=== PATIENT | male | born 1990 | race Caucasian/White ===

== ENCOUNTER 2017-11-19 20:38 | Emergency (ER) | payer OTHER ==
--- NOTE | 2017-11-19 20:40 | UC ---
Skin Complaint HPI - HPI Summary HPI Summary: 27 yo male presents with LEFT elbow redness, warmth, and swelling that began yesterday. He tells me that yesterday morning he woke up with redness, warmth, pain, and swelling to left elbow. He iced the area and took some ibuprofen with significant reduction in pain/swelling/redness. Today seems moderately improved , but still red and warm. Of note; he has been in and out of the hospital visiting his grandmother who was admitted there for a "drug resistant UTI" where he had to wear disposable PPE to enter the room. Denies fever, chills, injury, or open wounds. - History of Current Complaint Time Seen by Provider: 11/19/17 20:39 Stated Complaint: ABCESS ON ELBOW Hx Obtained From: Patient Onset/Duration: Sudden Onset Skin Exposure Onset/Duration: Days Ago Onset Severity: Mild Current Severity: Mild Pain Intensity: 3 Pain Scale Used: 0-10 Numeric - Allergy/Home Medications Allergies/Adverse Reactions: Allergies Allergy/AdvReac Type Severity Reaction Status Date / Time No Known Allergies Allergy Verified 11/19/17 20:56 Review of Systems Constitutional: Negative Skin: Other - Redness, swelling, warmth left elbow Respiratory: Negative Cardiovascular: Negative Musculoskeletal: Negative Neurological: Negative Psychological: Negative All Other Systems Reviewed And Are Negative: Yes PMH/Surg Hx/FS Hx/Imm Hx - Additional Past Medical History Additional PMH: None - Surgical History Surgical History: None - Family History Known Family History: Positive: None - Social History Occupation: Student Lives: With Family Alcohol Use: Weekly Substance Use Type: None Smoking Status (MU): Never Smoked Tobacco Physical Exam - Summary Physical Exam Summary: GENERAL: NAD. WDWN. No pain distress. SKIN: LEFT elbow: erythema extending in a circular pattern 3.5cm above and below olecranon with mild warmth and edema. Mild TTP. No open lacerations, bug bites, or puncture wounds. No streaking or drainage. NECK: Supple. Nontender. No lymphadenopathy. CHEST: No accessory muscle use. Breathing comfortably and in no distress. CV: Pulses intact. Cap refill <2seconds MSK: FROM without pain left elbow. NEURO: Alert. PSYCH: Age appropriate behavior. Triage Information Reviewed: Yes Vital Signs: Vital Signs: Temp Pulse Resp BP Pulse Ox 99.0 F 86 16 128/78 97 11/19/17 20:51 11/19/17 20:51 11/19/17 20:51 11/19/17 20:51 11/19/17 20:51 Vital Signs Reviewed: Yes Course/Dx - Course Course Of Treatment: Suspect cellulitis vs bursitis of left elbow. Advised to continue taking ibuprofen and applying ice to the area. Given his recent travel in and out of the hospital to visit his grandmother - will cover him for MRSA with Bactrim. There is no drainage or wound to culture at this time. The edges of erythema was marked with a purple marking pen. - Diagnoses Provider Diagnoses: Cellulitis left elbow Discharge - Sign-Out/Discharge Documenting (check all that apply): Patient Departure All imaging exams completed and their final reports reviewed: No Studies - Discharge Plan Condition: Stable Disposition: HOME Prescriptions: Sulfamethox/Trimethoprim DS* [Bactrim DS 800/160 TAB*] 1 tab PO BID #14 tab Patient Education Materials: Cellulitis (ED), Elbow Bursitis (ED) [facility] - Additional Instructions: If you develop a fever, shortness of breath, chest pain, new or worsening symptoms - please call your PCP or go to the ED. 1) Continue taking ibuprofen and applying ice to the area. 2) If you notice the redness/warmth spreading up or down your arm outside of the marked area or if you develop a fever - please call or return to urgent care. - Billing Disposition and Condition Condition: STABLE Disposition: Home Images Front/Back of Body, Lg ([place]): 1 - Cellulitis - Attestation Statements Provider Attestation: Per institutional requirements, I have reviewed the chart, however, I was not consulted specifically or made aware of this patient by the midlevel provider. I did not personally evaluate, interact with , or disposition this patient.
[2017-11-19 20:56] VITALS: BP 128/78
[2017-11-19] MEDS ORDERED: Sulfamethox/Trimethoprim DS 800/160* TAB PO ONE (20:56)
== END 2017-11-19 21:03 | disposition home or self-care (01) ==
LOC: UCEAST 20:38
DX: L03.114 Cellulitis of left upper limb (principal)
CPT/HCPCS: 99202; A9270-GY; G0463